=== PATIENT | male | born 1960 | race Caucasian/White ===

== ENCOUNTER 2018-01-21 06:02 | Day surgery (SDC) | payer BC ==
[~2018-01-21 06:02] MED LIST: Lactated Ringers 1,000 ML IV ONE
[2018-01-21] MEDS ORDERED: DIPRIVAN 200 MG/20 ML IV ONE (06:03)
[2018-01-21] MEDS ORDERED: Ketamine HCl 50 MG/ML IV ONE (06:03)
[2018-01-21] MEDS ORDERED: Lactated Ringers 1,000 ML IV SCH (07:00)
[2018-01-21 08:48] VITALS: O2SAT 99
--- NOTE | 2018-01-21 08:49 | OP ---
SURGERY DATE/TIME: 01/21/2018 0745 PREOPERATIVE DIAGNOSES: 1) Screening colonoscopy. 2) History of colon polyps. POSTOPERATIVE DIAGNOSIS: Normal colon. PROCEDURE: Colonoscopy. SURGEON: Tommy Simpson M.D. ANESTHESIA: MAC by Roberto Jason CRNA. ESTIMATED BLOOD LOSS: None. SPECIMENS: None. DESCRIPTION OF PROCEDURE: After informed written consent was obtained, the patient was taken to the endoscopy suite. He underwent monitored anesthesia and digital rectal exam showed normal sphincter tone and no internal lesions. The scope was inserted into the rectum and sequentially the entire colonic mucosa was traversed. The level of cecum was reached and verified with direct visualization of ileocecal valve. Upon withdrawal careful mucosal inspection revealed no gross abnormalities or lesions. Prior to withdrawal retroflexion was performed and showed no internal lesions. The scope was removed and the patient was transferred to the recovery room in good condition.
[2018-01-21 08:53] VITALS: BP 155/83; PULSE 84
== END 2018-01-21 09:00 | disposition home or self-care (01) ==
LOC: SDC 06:02
PROVIDERS: ATTEND Family Medicine
DX: Z12.11 Encounter for screening for malignant neoplasm of colon (principal); Z86.010 Personal history of colon polyps
CPT/HCPCS: 94250; J2704

== ENCOUNTER 2018-04-23 07:16 | Emergency (ER) | payer BC ==
--- NOTE | 2018-04-23 07:54 | ERPHSYRPT ---
- History of Present Illness Time Seen by Provider: 04/23/18 07:35 Source: patient, family Patient Subjective Stated Complaint: fell off ladder on Friday and went to see Dr. Chaney and she gave him the all clear but in bed last night he heard something "pop" in his back and now he is having pain Triage Nursing Assessment: Pt states that he fell off a ladder on Friday and went to see Dr. Chaney and she gave him the all clear but in bed last night he heard something "pop" in his back and now he is having pain, pain in medial upper back, denies numbness or tingling, denies pain with palpatation, rates pain 3/10 while walking, pulses normal, vitals wnl, doesn't appear to be in any distress Physician History: 57 y/o white male fell approx 6 ft off a ladder onto his back 3 days ago. seen by pcp friday and pt states his pcp stated all ok. last pm pt twisted and felt a pop and has had worsening pain. hurts to breathe. pt had about 20 norco left from recent foot surgery but did not take any. no new falls Timing/Duration: day(s) (3) Method of Injury: fall Quality: sharp, stabbing Back Pain Location: T-spine, lumbar spine Severity of Pain-Max: moderate Severity of Pain-Current: moderate Modifying Factors: Improves With: movement (worsens) Associated Symptoms: lower back pain, muscle spasms, No loss of bowel control, No constipation, No nausea, No vomiting, No problems urinating, No weakness, No sensory/motor loss, No tingling in legs/feet Previous symptoms: recently seen Allergies/Adverse Reactions: No Known Drug Allergies Allergy (Verified 04/23/18 07:29) Home Medications: Lisinopril 40 mg PO DAILY 04/23/18 [History] hydroCHLOROthiazide [Hydrochlorothiazide] 25 mg PO DAILY 04/23/18 [History] Hx Influenza Vaccination/Date Given: No Hx Pneumococcal Vaccination/Date Given: No - Review of Systems Constitutional: No Symptoms Eyes: No Symptoms Ears, Nose, & Throat: No Symptoms Respiratory: No Symptoms Cardiac: No Symptoms Abdominal/Gastrointestinal: No Symptoms Genitourinary Symptoms: No Symptoms Musculoskeletal: Back Pain, Fall Skin: No Symptoms Neurological: No Symptoms Psychological: No Symptoms Endocrine: No Symptoms Hematologic/Lymphatic: No Symptoms Immunological/Allergic: No Symptoms All Other Systems: Reviewed and Negative - Past Medical History Pertinent Past Medical History: Yes Neurological History: No Pertinent History ENT History: No Pertinent History Cardiac History: No Pertinent History Respiratory History: No Pertinent History Endocrine Medical History: No Pertinent History Musculoskeletal History: Fractures, Other GI Medical History: No Pertinent History History: No Pertinent History Psycho-Social History: No Pertinent History Male Reproductive Disorders: No Pertinent History Other Medical History: gout, fx hand ankle nose. - Past Surgical History Past Surgical History: No Neuro Surgical History: No Pertinent History Cardiac: No Pertinent History Respiratory: No Pertinent History Gastrointestinal: No Pertinent History Genitourinary: No Pertinent History Musculoskeletal: No Pertinent History Male Surgical History: No Pertinent History Other Surgical History: tumor taken off of right foot - Social History Smoking Status: Former smoker Exposure to second hand smoke: Yes Drug Use: none Patient Lives Alone: No - Nursing Vital Signs Nursing Vital Signs: Initial Vital Signs Temperature 98.2 F 04/23/18 07:21 Pulse Rate 74 04/23/18 07:21 Blood Pressure 132/84 04/23/18 07:21 O2 Sat by Pulse Oximetry 99 04/23/18 07:21 Pain Scale Pain Intensity [Upper Medial 3 Back] Pain Intensity 3 - Physical Exam General Appearance: mild distress, alert, anxiety Eye Exam: PERRL/EOMI Ears, Nose, Throat Exam: normal ENT inspection, moist mucous membranes Neck Exam: normal inspection, non-tender, supple, full range of motion Respiratory Exam: normal breath sounds, lungs clear, airway intact, No respiratory distress, No accessory muscle use, No rhonchi, No wheezing, No stridor Cardiovascular Exam: regular rate/rhythm, normal heart sounds, normal peripheral pulses Gastrointestinal Exam: soft, normal bowel sounds, No tenderness, No guarding, No rebound Rectal Exam: not done Back Exam: vertebral tenderness, decreased range of motion, muscle spasm, other (area of midthoracic swelling and tenderness) Extremity Exam: normal inspection, normal range of motion, pelvis stable Neurologic Exam: alert, oriented x 3, cooperative, 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 Skin Exam: normal color, warm, dry Lymphatic Exam: adenopathy SpO2 Interpretation: normal SpO2: 99 O2 Delivery: Room Air - Course Nursing assessment & vital signs reviewed: Yes Ordered Tests: Active Orders 24 hr Category Date Time Status LUMBAR LIMITED (2 OR 3 VIEWS) Stat Exams 04/23/18 08:08 Completed THORACIC SPINE (AP,LAT,SWIMM) Stat Exams 04/23/18 08:08 Completed Medication Summary Discontinued Medications Generic Name Dose Route Start Last Admin Trade Name Miranda PRN Reason Stop Dose Admin Hydromorphone HCl 1 mg 04/23/18 08:04 04/23/18 08:10 Hydromorphone 1 Mg/Ml Ampule IM 04/23/18 08:05 1 mg STAT ONE Administration Hydromorphone HCl Confirm 04/23/18 08:07 Hydromorphone 1 Mg/Ml Ampule Administered 04/23/18 08:08 Dose 1 mg .ROUTE .STK-MED ONE Promethazine HCl 12.5 mg 04/23/18 08:05 04/23/18 08:11 Phenergan 25 Mg Inj IM 04/23/18 08:06 12.5 mg STAT ONE Administration Promethazine HCl Confirm 04/23/18 08:07 Phenergan 25 Mg Inj Administered 04/23/18 08:08 Dose 25 mg .ROUTE .STK-MED ONE - Progress Progress: improved Progress Note: 04/23/18 09:16 xray thoracic and lumbar spine-no acute fx or subluxation Counseled pt/family regarding: diagnosis, need for follow-up, rad results - Departure Time of Disposition: 09:17 Departure Disposition: Home Clinical Impression: Back pain due to injury Condition: Stable Critical Care Time: No Referrals: ACOSTA CHANEY [Primary Care Provider] - Additional Instructions: take your norco as prescribed. follow up with primary doctor for further management. Prescriptions: Carisoprodol 350 mg [Soma 350 mg] 350 mg PO Q8H PRN PRN #10 tablet PRN Reason: Muscle Spasms Prednisone 10 mg [Deltasone 10 mg] 10 mg PO TID #12 tablet
[2018-04-23] MEDS ORDERED: Hydromorphone 1 mg/ml Ampule IM ONE (08:04)
[2018-04-23] MEDS ORDERED: Phenergan 25 MG INJ IM ONE (08:05)
[2018-04-23] MEDS ORDERED: Hydromorphone 1 mg/ml Ampule ONE (08:07)
[2018-04-23] MEDS ORDERED: Phenergan 25 MG INJ ONE (08:07)
--- NOTE | 2018-04-23 08:44 | XRAY ---
Indication: Pain following fall. Comparison: None Frontal/lateral thoracic spine demonstrates 12 typical rib-bearing thoracic vertebral segments in normal alignment with vertebral body heights and disc spaces maintained. Mild multilevel degenerative endplate spurring. No other bony, articular, or soft tissue abnormalities. Impression: Nonacute thoracic spine with chronic features.
--- NOTE | 2018-04-23 08:45 | XRAY ---
Indication: Pain following fall. Comparison: None 3 views of the lumbar spine demonstrates 4 lumbar segments with sacralized L5 in normal alignment with mild multilevel endplate spurring, minimal L4-L5 disc space narrowing, mild L4-L5 degenerative facet arthropathy, and minimal aortic calcifications. No other bony, articular, or soft tissue abnormalities. Impression: Nonacute lumbar spine with chronic features.
[2018-04-23 09:41] VITALS: BP 111/75; PULSE 65; O2SAT 94
== END 2018-04-23 09:43 | disposition home or self-care (01) ==
LOC: ED 07:16
DX: M54.6 Pain in thoracic spine (principal); X50.1XXA Overexertion from prolonged static or awkward postures, initial encounter; W11.XXXA Fall on and from ladder, initial encounter; M54.5 Low back pain; M62.830 Muscle spasm of back
CPT/HCPCS: 72072; 72100; 96372; 99284; J1170; J2550

== ENCOUNTER 2020-01-25 09:06 | Observation (INO) | payer BC ==
[2020-01-25] MEDS: Sodium Chloride 0.9% 1000 ML 1,000 ML IV SCH (09:35)
--- NOTE | 2020-01-25 09:37 | ERPHSYRPT ---
- History of Present Illness Time Seen by Provider: 01/25/20 09:15 Source: patient Physician History: Patient is a 59-year-old male presents to our ED with slurred speech and right- sided facial droop that has been ongoing for 4 days. Patient was sent to our ED for an evaluation per his 's request. Patient observed the symptoms on Friday. Patient did not think much of it. At that time he also experienced a mild headache. Symptoms persisted and family became concerned. Patient has hi story of untreated hypertension. Patient states he also has hypercholesterolemia. Patient chews tobacco. No history of CVA. No associated chest pain or shortness of breath. No nausea vomiting or diaphoresis. Symptoms are moderate in intensity. No specific worsening or improving factors. Patient states otherwise healthy. He voices no other complaints at this time. Timing/Duration: day(s) (4 days ago) Severity: moderate Modifying Factors: Improves With: nothing Associated Symptoms: other (Slurred speech) Allergies/Adverse Reactions: No Known Drug Allergies Allergy (Verified 01/25/20 09:35) Home Medications: No Reportable Medications [No Reported Medications] 01/25/20 [History] Hx Influenza Vaccination/Date Given: No Hx Pneumococcal Vaccination/Date Given: No - Review of Systems Constitutional: No Symptoms, No Fever, No Chills Eyes: No Symptoms Ears, Nose, & Throat: No Symptoms Respiratory: No Symptoms, No Cough, No Dyspnea Cardiac: No Symptoms, No Chest Pain, No Edema, No Syncope Abdominal/Gastrointestinal: No Symptoms, No Abdominal Pain, No Nausea, No Vomiting, No Diarrhea Genitourinary Symptoms: No Symptoms, No Dysuria Musculoskeletal: No Symptoms, No Back Pain, No Neck Pain Skin: No Symptoms, No Rash Neurological: No Symptoms, No Dizziness, No Focal Weakness, No Sensory Changes Psychological: No Symptoms Endocrine: No Symptoms Hematologic/Lymphatic: No Symptoms Immunological/Allergic: No Symptoms All Other Systems: Reviewed and Negative - Past Medical History Pertinent Past Medical History: Yes Neurological History: No Pertinent History ENT History: No Pertinent History Cardiac History: No Pertinent History Respiratory History: No Pertinent History Endocrine Medical History: No Pertinent History Musculoskeletal History: Fractures, Other GI Medical History: No Pertinent History History: No Pertinent History Psycho-Social History: No Pertinent History Male Reproductive Disorders: No Pertinent History Other Medical History: gout, fx hand ankle nose. - Past Surgical History Past Surgical History: No Neuro Surgical History: No Pertinent History Cardiac: No Pertinent History Respiratory: No Pertinent History Gastrointestinal: No Pertinent History Genitourinary: No Pertinent History Musculoskeletal: No Pertinent History Male Surgical History: No Pertinent History Other Surgical History: tumor taken off of right foot - Social History Smoking Status: Former smoker Exposure to second hand smoke: Yes Drug Use: none Patient Lives Alone: No - Nursing Vital Signs Nursing Vital Signs: Initial Vital Signs Temperature 97.8 F 01/25/20 09:08 Pulse Rate 63 01/25/20 09:08 Respiratory Rate 20 01/25/20 09:08 Blood Pressure 172/106 01/25/20 09:08 O2 Sat by Pulse Oximetry 100 01/25/20 09:08 Pain Scale Pain Intensity 0 - Physical Exam General Appearance: no apparent distress, alert Eye Exam: PERRL/EOMI, eyes nml inspection Ears, Nose, Throat Exam: normal ENT inspection, TMs normal, pharynx normal, moist mucous membranes Neck Exam: normal inspection, non-tender, supple, full range of motion Respiratory Exam: normal breath sounds, lungs clear, No respiratory distress Cardiovascular Exam: regular rate/rhythm, normal heart sounds, normal peripheral pulses Gastrointestinal/Abdomen Exam: soft, normal bowel sounds, No tenderness, No mass Back Exam: normal inspection, normal range of motion, No CVA tenderness, No vertebral tenderness Extremity Exam: normal inspection, normal range of motion, pelvis stable Neurologic Exam: alert, oriented x 3, cooperative, normal mood/affect, nml cerebellar function, nml station & gait, sensation nml, motor weakness, facial droop (Right-sided facial droop mild dysarthria), other (Patient states the right side of his face is more sensitive than the left.), No motor deficits, No disoriented, No confusion Skin Exam: normal color, warm, dry, No rash Lymphatic Exam: No adenopathy SpO2 Interpretation: normal SpO2: 98 O2 Delivery: Room Air - Course Nursing assessment & vital signs reviewed: Yes EKG Interpreted by Me: RATE (61), Sinus Rhythm, NORMAL AXIS, NORMAL INTERVALS - Radiology Exams Chest X-ray Interpretation: Teleradiologist Report (No acute pathology observed.) - CT Exams Head CT Interpretation: Tele-radiologist Report (No acute intracranial process.) Ordered Tests: Active Orders 24 hr Category Date Time Status Consulting Project Director STAT Care 01/25/20 09:31 Active EKG-ER Only STAT Care 01/25/20 09:30 Active IV Insertion STAT Care 01/25/20 09:30 Active NPO (ED) STAT Care 01/25/20 09:30 Active POCT Glucose Check STAT Care 01/25/20 09:30 Active Pulse Oximetry (ED) STAT Care 01/25/20 09:30 Active CHEST 1 VIEW (PORTABLE) Stat Exams 01/25/20 09:30 Completed HEAD WITHOUT CONTRAST [CT] Stat Exams 01/25/20 09:30 Completed CBC W DIFF Stat Lab 01/25/20 09:15 Completed CMP Stat Lab 01/25/20 09:15 Completed TROPONIN Q3H Lab 01/25/20 10:15 Ordered TROPONIN Q3H Lab 01/25/20 13:15 Ordered TROPONIN Q3H Lab 01/25/20 16:15 Ordered TROPONIN Q3H Lab 01/25/20 19:15 Ordered TROPONIN Q3H Lab 01/25/20 22:15 Ordered UA W/RFX UR CULTURE Stat Lab 01/25/20 10:20 Ordered Transfer Order Routine Transfer 01/25/20 Ordered Medication Summary Generic Name Dose Route Start Last Admin Trade Name Freq PRN Reason Stop Dose Admin Sodium Chloride 1,000 mls @ 50 mls/hr 01/25/20 09:30 01/25/20 09:35 Sodium Chloride 0.9% 1000 Ml IV 02/24/20 09:29 50 mls/hr .Q20H HAN Administration Discontinued Medications Generic Name Dose Route Start Last Admin Trade Name Freq PRN Reason Stop Dose Admin Aspirin 324 mg 01/25/20 10:10 01/25/20 10:12 Baby Aspirin 81 Mg Chew PO 01/25/20 10:11 324 mg STAT ONE Administration Aspirin Confirm 01/25/20 10:12 Baby Aspirin 81 Mg Chew Administered 01/25/20 10:13 Dose 324 mg .ROUTE .STK-MED ONE Lab/Rad Data: Laboratory Result Diagrams 01/25/20 09:15 01/25/20 09:15 Laboratory Results 01/25/20 01/25/20 Range/Units 09:15 09:15 WBC 5.7 (4.0-10.5) K/mm3 RBC 5.21 (4.1-5.6) M/mm3 Hgb 16.2 (12.5-18.0) gm/dl Hct 49.7 (42-50) % MCV 95.4 (78-100) fl MCH 31.1 (26-32) pg MCHC 32.6 (32-36) g/dl RDW 13.6 (11.5-14.0) % Plt Count 191 (150-450) K/mm3 MPV 11.1 H (7.5-11.0) fl Gran % 54.4 (36.0-66.0) % Eos # (Auto) 0.09 (0-0.5) Absolute Lymphs (auto) 1.62 (1.0-4.6) Absolute Monos (auto) 0.87 (0.0-1.3) Lymphocytes % 28.3 (24.0-44.0) % Monocytes % 15.2 H (0.0-12.0) % Eosinophils % 1.6 (0.00-5.0) % Basophils % 0.5 (0.0-0.4) % Absolute Granulocytes 3.11 (1.4-6.9) Basophils # 0.03 (0-0.4) Sodium 141 (137-145) mmol/L Potassium 4.1 (3.5-5.1) mmol/L Chloride 103 (98-107) mmol/L Carbon Dioxide 31 H (22-30) mmol/L Anion Gap 11.1 (5-15) MEQ/L BUN 18 (9-20) mg/dL Creatinine 1.09 (0.66-1.25) mg/dL Estimated GFR > 60.0 ML/MIN Glucose 87 (74-106) mg/dL Calcium 9.3 (8.4-10.2) mg/dL Total Bilirubin 0.50 (0.2-1.3) mg/dL AST 27 (17-59) U/L ALT 24 (0-50) U/L Alkaline Phosphatase 81 (38-126) U/L Serum Total Protein 7.4 (6.3-8.2) g/dL Albumin 4.6 (3.5-5.0) g/dL - Progress Progress: improved Progress Note: 01/25/20 10:22 Patient reassessed. Repeat neuro exam unchanged. CT head negative for acute intracranial pathology. Aspirin administered. IV fluids normal saline running at 75 cc/h. It appears that patient did have a stroke based on history of pres ent illness, risk factors and physical exam findings. Patient will need full work-up at the admitting physician's discretion. Plan of care discussed with patient. He agrees to admission to [facility] for further evaluation and treatment. Patient voices no other complaints or concerns at this time. Case discussed with Dr. Espino covering Dr. Geronimo. Dr. Espino accepts admission to observation. Patient is not a candidate for TPA due to patient being outside of therapeutic window for TPA. Patient symptoms occurred 4 days ago. 01/25/20 10:24 01/25/20 10:25 Discussed with : Julius Will see patient in: hospital (observation) Counseled pt/family regarding: lab results, diagnosis, rad results - Departure Departure Disposition: Observation Clinical Impression: Stroke, Dysarthria, Facial droop Condition: Stable Critical Care Time: No Referrals: GILBERTO GERONIMO MD [Primary Care Provider] -
[2020-01-25 09:53] LABS: Absolute Neutrophil Ct (ANC) 3.11 (1.4-6.9); BASOPHIL % 0.5 % (0.0-0.4); Basophil (Absolute #) 0.03 (0-0.4); Eosinophil % 1.6 % (0.00-5.0); Eosinophil (Absolute #) 0.09 (0-0.5); Hematocrit 49.7 % (42-50); Hemoglobin 16.2 gm/dl (12.5-18.0); Lymphocyte (Absolute #) 1.62 (1.0-4.6); Lymphocytes % 28.3 % (24.0-44.0); Mean Cell Volume 95.4 fl (78-100); Mean Corpuscular Hemoglobin 31.1 pg (26-32); Mean Corpuscular Hgb Concent. 32.6 g/dl (32-36); Mean Platelet Volume 11.1 fl (7.5-11.0); Monocyte (Absolute #) 0.87 (0.0-1.3); Monocytes % 15.2 % (0.0-12.0); Neutrophil % 54.4 % (36.0-66.0); Platelet Count 191 K/mm3 (150-450); Red Blood Count 5.21 M/mm3 (4.1-5.6); Red Cell Distribution Width 13.6 % (11.5-14.0); White Blood Count 5.7 K/mm3 (4.0-10.5)
--- NOTE | 2020-01-25 09:56 | XRAY ---
Indication: Confusion, slurred speech, and stroke like symptoms. Multiple contiguous axial images obtained through the head without contrast. Comparison: None Age-appropriate global atrophy and minimal periventricular degenerative micro-ischemia bilaterally. No acute intracranial hemorrhage, abnormal extra-axial fluid collection, or mass effect. Fourth ventricle is midline without hydrocephalus. Farias-white matter differentiation preserved. Bony calvarium intact. Visualized paranasal sinuses and mastoid air cells are clear. Impression: Normal aging brain including atrophy and degenerative micro-ischemia. No acute intracranial abnormalities.
[2020-01-25 10:00] LABS: ALBUMIN 4.6 g/dL (3.5-5.0); ALKALINE PHOSPHATASE 81 U/L (38-126); ANION GAP 11.1 MEQ/L (5-15); BLOOD UREA NITROGEN 18 mg/dL (9-20); CHLORIDE 103 mmol/L (98-107); Calcium 9.3 mg/dL (8.4-10.2); Carbon Dioxide 31 mmol/L (22-30); Creatinine 1 1.09 mg/dL (0.66-1.25); EST GLOMERULAR FILTRATION RATE > 60.0 ML/MIN; Glucose 87 mg/dL (74-106); Potassium 4.1 mmol/L (3.5-5.1); SGOT/AST 27 U/L (17-59); SGPT/ALT 24 U/L (0-50); SODIUM 141 mmol/L (137-145); Total Protein 7.4 g/dL (6.3-8.2)
--- NOTE | 2020-01-25 10:00 | XRAY ---
Indication: Confusion, slurred speech, and stroke like symptoms. Comparison: None Portable chest demonstrates normal heart and lungs. Bony thorax intact with old left 5-7 rib fractures.
[2020-01-25] MEDS ORDERED: BABY ASPIRIN 81 MG CHEW PO ONE (10:10)
[2020-01-25] MEDS ORDERED: BABY ASPIRIN 81 MG CHEW ONE (10:12)
[2020-01-25 10:42] LABS: Appearance CLEAR (CLEAR); Bilirubin NEGATIVE (NEGATIVE); Blood NEGATIVE Ery/ul (0-5); Glucose NEGATIVE (NEGATIVE); Hyaline Casts 0-2 /LPF (0-2); Ketones NEGATIVE (NEGATIVE); Leukocyte Esterase NEGATIVE (NEGATIVE); Mucus SLIGHT /HPF (NEGATIVE); Nitrite NEGATIVE (NEGATIVE); Protein,Urine Dip NEGATIVE (Negative); Specific Gravity 1.016 (1.005-1.025); Urobilinogen NEGATIVE mg/dL (0-1)
[2020-01-25] MEDS ORDERED: Senokot-S Tablet PO PRN (11:04)
[2020-01-25] MEDS ORDERED: MAALOX ES 30 ML UNIT DOSE PO PRN (11:04)
[2020-01-25] MEDS ORDERED: TYLENOL 325 MG PO PRN (11:04)
[2020-01-25] MEDS ORDERED: MILK OF MAGNESIA 30 ML PO PRN (11:04)
[2020-01-25] MEDS ORDERED: Zofran 4 MG/2 ML VIAL IV PRN (11:04)
[2020-01-25] MEDS ORDERED: Sodium Chloride 0.9% 500 ML 500 ML IV SCH (11:04)
[2020-01-26] MEDS: Sodium Chloride 0.9% 1000 ML 1,000 ML IV SCH (00:46)
--- NOTE | 2020-01-26 08:34 | PCM.SSS ---
History of Present Illness - Chief Complaint Chief Complaint: stroke History of Present Illness: is a 59 year old male who presented to the ER yesterday, 3-4 days prior to arrival he had developed slurred speech and drooping of his face on the left, there were no associated deficits in the upper or lower extremity, he relays some cold symptoms prior to onset but never felt poorly. no affect on his ability to eat or drink, no problems with vision, no headache. he was admitted for possible stroke, ct was negative. - Review of Systems Constitutional: No Fever, No Chills Respiratory: No Cough, No Short Of Breath Cardiac: No Chest Pain, No Edema, No Syncope Abdominal/Gastrointestinal: No Abdominal Pain, No Nausea, No Vomiting, No Diarrhea Neurological: Focal Weakness, Speech Changes, No Dizziness, No Gait Changes, No Headache, No Seizure, No Tremors, No Vertigo Psychological: No Symptoms All Other Systems: Reviewed and Negative Medications & Allergies Home Medications: Home Medication List Acyclovir 800 mg [Zovirax 800 mg] 800 mg PO 5XD #35 tablet 01/26/20 [Rx] Prednisone 20 mg [Deltasone 20 mg] 20 mg PO UD #18 tablet 01/26/20 [Rx] Allergies/Adverse Reactions: Allergies Allergy/AdvReac Type Severity Reaction Status Date / Time No Known Drug Allergies Allergy Verified 01/25/20 09:35 - Past Medical History Past Medical History: Yes Neurological History: No Pertinent History ENT History: No Pertinent History Cardiac History: No Pertinent History Respiratory History: No Pertinent History Endocrine Medical History: No Pertinent History Musculoskelatal History: Fractures, Other GI Medical History: No Pertinent History History: No Pertinent History Pyscho-Social History: No Pertinent History Male Reproductive Disorders: No Pertinent History Comment: gout, fx hand ankle nose. - Past Surgical History Past Surgical History: No Neuro Surgical History: No Pertinent History Cardiac History: No Pertinent History Respiratory Surgery: No Pertinent History GI Surgical History: No Pertinent History Genitourinary Surgical Hx: No Pertinent History Musculskeletal Surgical Hx: No Pertinent History Male Surgical History: No Pertinent History Other Surgical History: tumor taken off of right foot - Social History Smoking Status: Former smoker Exposure to second hand smoke: Yes Alcohol: None Drug Use: none - Physical Exam Vital Signs: Vital Signs - 24 hr Temp Pulse Resp BP Pulse Ox 01/26/20 08:03 98.4 F 63 16 136/94 97 01/26/20 07:07 95 01/26/20 04:19 98.2 F 75 16 155/85 95 01/25/20 23:42 98.0 F 74 15 126/70 97 01/25/20 20:01 98.3 F 66 16 145/87 95 01/25/20 19:17 93 L 01/25/20 16:00 80 20 161/87 95 01/25/20 15:17 98 01/25/20 11:42 98.5 F 82 148/91 98 01/25/20 10:26 98 01/25/20 10:17 65 18 140/97 98 01/25/20 09:36 100 01/25/20 09:08 97.8 F 63 20 172/106 100 General Appearance: no apparent distress Neurologic Exam: alert, oriented x 3, cooperative, nml cerebellar function, nml station & gait, sensation nml, facial droop (left, no involvement of ocular muscles, able to close both eyes and no weakness in closing eyes or raising eyebrows), slurred speech, No motor deficits, No sensory deficit, No disoriented Respiratory Exam: normal breath sounds, lungs clear, No respiratory distress Cardiovascular Exam: regular rate/rhythm, normal heart sounds, normal peripheral pulses Gastrointestinal/Abdomen Exam: soft, normal bowel sounds, No tenderness, No mass Extremity Exam: normal inspection, normal range of motion, pelvis stable Skin Exam: normal color, warm, dry, No rash Results - Labs Lab/Micro Results: Lab Results-Last 24 Hours 01/25/20 01/25/20 01/25/20 Range/Units 09:15 09:15 10:16 WBC 5.7 (4.0-10.5) K/mm3 RBC 5.21 (4.1-5.6) M/mm3 Hgb 16.2 (12.5-18.0) gm/dl Hct 49.7 (42-50) % MCV 95.4 (78-100) fl MCH 31.1 (26-32) pg MCHC 32.6 (32-36) g/dl RDW 13.6 (11.5-14.0) % Plt Count 191 (150-450) K/mm3 MPV 11.1 H (7.5-11.0) fl Gran % 54.4 (36.0-66.0) % Eos # (Auto) 0.09 (0-0.5) Absolute Lymphs (auto) 1.62 (1.0-4.6) Absolute Monos (auto) 0.87 (0.0-1.3) Lymphocytes % 28.3 (24.0-44.0) % Monocytes % 15.2 H (0.0-12.0) % Eosinophils % 1.6 (0.00-5.0) % Basophils % 0.5 (0.0-0.4) % Absolute Granulocytes 3.11 (1.4-6.9) Basophils # 0.03 (0-0.4) Sodium 141 (137-145) mmol/L Potassium 4.1 (3.5-5.1) mmol/L Chloride 103 (98-107) mmol/L Carbon Dioxide 31 H (22-30) mmol/L Anion Gap 11.1 (5-15) MEQ/L BUN 18 (9-20) mg/dL Creatinine 1.09 (0.66-1.25) mg/dL Estimated GFR > 60.0 ML/MIN Glucose 87 (74-106) mg/dL Calcium 9.3 (8.4-10.2) mg/dL Total Bilirubin 0.50 (0.2-1.3) mg/dL AST 27 (17-59) U/L ALT 24 (0-50) U/L Alkaline Phosphatase 81 (38-126) U/L Troponin I < 0.012 (0.000-0.034) ng/mL Serum Total Protein 7.4 (6.3-8.2) g/dL Albumin 4.6 (3.5-5.0) g/dL Triglycerides (30-150) mg/dL Cholesterol (50-200) mg/dL LDL Cholesterol (30-100) mg/dL HDL Cholesterol (40-60) mg/dL Heart Disease Risk Ratio Urine Color (YELLOW) Urine Appearance (CLEAR) Urine pH (5-6) Ur Specific Hawley (1.005-1.025) Urine Protein (Negative) Urine Ketones (NEGATIVE) Urine Blood (0-5) Huber/ul Urine Nitrite (NEGATIVE) Urine Bilirubin (NEGATIVE) Urine Urobilinogen (0-1) mg/dL Ur Leukocyte Esterase (NEGATIVE) Urine WBC (Auto) (0-5) /HPF Urine RBC (Auto) (0-2) /HPF U Hyaline Cast (Auto) (0-2) /LPF U Epithel Cells (Auto) (FEW) /HPF Urine Bacteria (Auto) (NEGATIVE) /HPF Urine Mucus (Auto) (NEGATIVE) /HPF Urine Culture Reflexed (NO) Urine Glucose (NEGATIVE) mg/dL 01/25/20 01/25/20 01/25/20 Range/Units 10:20 13:25 16:10 WBC (4.0-10.5) K/mm3 RBC (4.1-5.6) M/mm3 Hgb (12.5-18.0) gm/dl Hct (42-50) % MCV (78-100) fl MCH (26-32) pg MCHC (32-36) g/dl RDW (11.5-14.0) % Plt Count (150-450) K/mm3 MPV (7.5-11.0) fl Gran % (36.0-66.0) % Eos # (Auto) (0-0.5) Absolute Lymphs (auto) (1.0-4.6) Absolute Monos (auto) (0.0-1.3) Lymphocytes % (24.0-44.0) % Monocytes % (0.0-12.0) % Eosinophils % (0.00-5.0) % Basophils % (0.0-0.4) % Absolute Granulocytes (1.4-6.9) Basophils # (0-0.4) Sodium (137-145) mmol/L Potassium (3.5-5.1) mmol/L Chloride (98-107) mmol/L Carbon Dioxide (22-30) mmol/L Anion Gap (5-15) MEQ/L BUN (9-20) mg/dL Creatinine (0.66-1.25) mg/dL Estimated GFR ML/MIN Glucose (74-106) mg/dL Calcium (8.4-10.2) mg/dL Total Bilirubin (0.2-1.3) mg/dL AST (17-59) U/L ALT (0-50) U/L Alkaline Phosphatase (38-126) U/L Troponin I < 0.012 < 0.012 (0.000-0.034) ng/mL Serum Total Protein (6.3-8.2) g/dL Albumin (3.5-5.0) g/dL Triglycerides (30-150) mg/dL Cholesterol (50-200) mg/dL LDL Cholesterol (30-100) mg/dL HDL Cholesterol (40-60) mg/dL Heart Disease Risk Ratio Urine Color YELLOW (YELLOW) Urine Appearance CLEAR (CLEAR) Urine pH 6.0 (5-6) Ur Specific Hawley 1.016 (1.005-1.025) Urine Protein NEGATIVE (Negative) Urine Ketones NEGATIVE (NEGATIVE) Urine Blood NEGATIVE (0-5) Huber/ul Urine Nitrite NEGATIVE (NEGATIVE) Urine Bilirubin NEGATIVE (NEGATIVE) Urine Urobilinogen NEGATIVE (0-1) mg/dL Ur Leukocyte Esterase NEGATIVE (NEGATIVE) Urine WBC (Auto) NONE (0-5) /HPF Urine RBC (Auto) NONE (0-2) /HPF U Hyaline Cast (Auto) 0-2 (0-2) /LPF U Epithel Cells (Auto) NONE (FEW) /HPF Urine Bacteria (Auto) NONE (NEGATIVE) /HPF Urine Mucus (Auto) SLIGHT (NEGATIVE) /HPF Urine Culture Reflexed NO (NO) Urine Glucose NEGATIVE (NEGATIVE) mg/dL 01/25/20 01/25/20 01/26/20 Range/Units 19:05 22:00 04:46 WBC (4.0-10.5) K/mm3 RBC (4.1-5.6) M/mm3 Hgb (12.5-18.0) gm/dl Hct (42-50) % MCV (78-100) fl MCH (26-32) pg MCHC (32-36) g/dl RDW (11.5-14.0) % Plt Count (150-450) K/mm3 MPV (7.5-11.0) fl Gran % (36.0-66.0) % Eos # (Auto) (0-0.5) Absolute Lymphs (auto) (1.0-4.6) Absolute Monos (auto) (0.0-1.3) Lymphocytes % (24.0-44.0) % Monocytes % (0.0-12.0) % Eosinophils % (0.00-5.0) % Basophils % (0.0-0.4) % Absolute Granulocytes (1.4-6.9) Basophils # (0-0.4) Sodium (137-145) mmol/L Potassium (3.5-5.1) mmol/L Chloride (98-107) mmol/L Carbon Dioxide (22-30) mmol/L Anion Gap (5-15) MEQ/L BUN (9-20) mg/dL Creatinine (0.66-1.25) mg/dL Estimated GFR ML/MIN Glucose (74-106) mg/dL Calcium (8.4-10.2) mg/dL Total Bilirubin (0.2-1.3) mg/dL AST (17-59) U/L ALT (0-50) U/L Alkaline Phosphatase (38-126) U/L Troponin I < 0.012 < 0.012 (0.000-0.034) ng/mL Serum Total Protein (6.3-8.2) g/dL Albumin (3.5-5.0) g/dL Triglycerides 120 (30-150) mg/dL Cholesterol 215 H (50-200) mg/dL LDL Cholesterol 133 H (30-100) mg/dL HDL Cholesterol 43 (40-60) mg/dL Heart Disease Risk Ratio 5.0 Urine Color (YELLOW) Urine Appearance (CLEAR) Urine pH (5-6) Ur Specific Hawley (1.005-1.025) Urine Protein (Negative) Urine Ketones (NEGATIVE) Urine Blood (0-5) Huber/ul Urine Nitrite (NEGATIVE) Urine Bilirubin (NEGATIVE) Urine Urobilinogen (0-1) mg/dL Ur Leukocyte Esterase (NEGATIVE) Urine WBC (Auto) (0-5) /HPF Urine RBC (Auto) (0-2) /HPF U Hyaline Cast (Auto) (0-2) /LPF U Epithel Cells (Auto) (FEW) /HPF Urine Bacteria (Auto) (NEGATIVE) /HPF Urine Mucus (Auto) (NEGATIVE) /HPF Urine Culture Reflexed (NO) Urine Glucose (NEGATIVE) mg/dL Accuchecks Date 01/25/20 Time 09:44 - Radiology Impressions Radiology Exams & Impressions: Radiology Procedures Category Date Time Status CHEST 1 VIEW (PORTABLE) Stat Exams 01/25/20 09:30 Completed HEAD WITHOUT CONTRAST [CT] Stat Exams 01/25/20 09:30 Completed MRI BRAIN W/O CONTRAST [MRI] Routine Exams 01/26/20 08:23 Ordered - Other Procedures and Tests Respiratory Therapy 01/27/20 05:00 EKG ONCE 01/28/20 05:00 EKG ONCE Assessment/Plan (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 recommend steroid and acyclovir course, no need for patching due to sparing of eye. Code(s): G51.0 - YAO'S PALSY (2) Facial droop Current Visit: Yes Status: Acute Code(s): R29.810 - FACIAL WEAKNESS Hospital Summary - Vitals & Intake/Output Vital Signs: Vital Signs Temperature 98.4 F 01/26/20 08:03 Pulse Rate 63 01/26/20 08:03 Respiratory Rate 16 01/26/20 08:03 Blood Pressure 136/94 01/26/20 08:03 O2 Sat by Pulse Oximetry 97 01/26/20 08:03 Intake & Output: Intake & Output 01/23/20 01/24/20 01/25/20 01/26/20 11:59 11:59 11:59 11:59 Intake Total 2416 Balance 2416 Weight 98.8 kg 98.7 kg - Lab Result Diagrams: 01/25/20 09:15 01/25/20 09:15 Lab Results-Last 24 Hrs: Lab Results-Last 24 Hours 01/25/20 01/25/20 01/25/20 Range/Units 09:15 09:15 10:16 WBC 5.7 (4.0-10.5) K/mm3 RBC 5.21 (4.1-5.6) M/mm3 Hgb 16.2 (12.5-18.0) gm/dl Hct 49.7 (42-50) % MCV 95.4 (78-100) fl MCH 31.1 (26-32) pg MCHC 32.6 (32-36) g/dl RDW 13.6 (11.5-14.0) % Plt Count 191 (150-450) K/mm3 MPV 11.1 H (7.5-11.0) fl Gran % 54.4 (36.0-66.0) % Eos # (Auto) 0.09 (0-0.5) Absolute Lymphs (auto) 1.62 (1.0-4.6) Absolute Monos (auto) 0.87 (0.0-1.3) Lymphocytes % 28.3 (24.0-44.0) % Monocytes % 15.2 H (0.0-12.0) % Eosinophils % 1.6 (0.00-5.0) % Basophils % 0.5 (0.0-0.4) % Absolute Granulocytes 3.11 (1.4-6.9) Basophils # 0.03 (0-0.4) Sodium 141 (137-145) mmol/L Potassium 4.1 (3.5-5.1) mmol/L Chloride 103 (98-107) mmol/L Carbon Dioxide 31 H (22-30) mmol/L Anion Gap 11.1 (5-15) MEQ/L BUN 18 (9-20) mg/dL Creatinine 1.09 (0.66-1.25) mg/dL Estimated GFR > 60.0 ML/MIN Glucose 87 (74-106) mg/dL Calcium 9.3 (8.4-10.2) mg/dL Total Bilirubin 0.50 (0.2-1.3) mg/dL AST 27 (17-59) U/L ALT 24 (0-50) U/L Alkaline Phosphatase 81 (38-126) U/L Troponin I < 0.012 (0.000-0.034) ng/mL Serum Total Protein 7.4 (6.3-8.2) g/dL Albumin 4.6 (3.5-5.0) g/dL Triglycerides (30-150) mg/dL Cholesterol (50-200) mg/dL LDL Cholesterol (30-100) mg/dL HDL Cholesterol (40-60) mg/dL Heart Disease Risk Ratio Urine Color (YELLOW) Urine Appearance (CLEAR) Urine pH (5-6) Ur Specific Hawley (1.005-1.025) Urine Protein (Negative) Urine Ketones (NEGATIVE) Urine Blood (0-5) Huber/ul Urine Nitrite (NEGATIVE) Urine Bilirubin (NEGATIVE) Urine Urobilinogen (0-1) mg/dL Ur Leukocyte Esterase (NEGATIVE) Urine WBC (Auto) (0-5) /HPF Urine RBC (Auto) (0-2) /HPF U Hyaline Cast (Auto) (0-2) /LPF U Epithel Cells (Auto) (FEW) /HPF Urine Bacteria (Auto) (NEGATIVE) /HPF Urine Mucus (Auto) (NEGATIVE) /HPF Urine Culture Reflexed (NO) Urine Glucose (NEGATIVE) mg/dL 01/25/20 01/25/20 01/25/20 Range/Units 10:20 13:25 16:10 WBC (4.0-10.5) K/mm3 RBC (4.1-5.6) M/mm3 Hgb (12.5-18.0) gm/dl Hct (42-50) % MCV (78-100) fl MCH (26-32) pg MCHC (32-36) g/dl RDW (11.5-14.0) % Plt Count (150-450) K/mm3 MPV (7.5-11.0) fl Gran % (36.0-66.0) % Eos # (Auto) (0-0.5) Absolute Lymphs (auto) (1.0-4.6) Absolute Monos (auto) (0.0-1.3) Lymphocytes % (24.0-44.0) % Monocytes % (0.0-12.0) % Eosinophils % (0.00-5.0) % Basophils % (0.0-0.4) % Absolute Granulocytes (1.4-6.9) Basophils # (0-0.4) Sodium (137-145) mmol/L Potassium (3.5-5.1) mmol/L Chloride (98-107) mmol/L Carbon Dioxide (22-30) mmol/L Anion Gap (5-15) MEQ/L BUN (9-20) mg/dL Creatinine (0.66-1.25) mg/dL Estimated GFR ML/MIN Glucose (74-106) mg/dL Calcium (8.4-10.2) mg/dL Total Bilirubin (0.2-1.3) mg/dL AST (17-59) U/L ALT (0-50) U/L Alkaline Phosphatase (38-126) U/L Troponin I < 0.012 < 0.012 (0.000-0.034) ng/mL Serum Total Protein (6.3-8.2) g/dL Albumin (3.5-5.0) g/dL Triglycerides (30-150) mg/dL Cholesterol (50-200) mg/dL LDL Cholesterol (30-100) mg/dL HDL Cholesterol (40-60) mg/dL Heart Disease Risk Ratio Urine Color YELLOW (YELLOW) Urine Appearance CLEAR (CLEAR) Urine pH 6.0 (5-6) Ur Specific Hawley 1.016 (1.005-1.025) Urine Protein NEGATIVE (Negative) Urine Ketones NEGATIVE (NEGATIVE) Urine Blood NEGATIVE (0-5) Huber/ul Urine Nitrite NEGATIVE (NEGATIVE) Urine Bilirubin NEGATIVE (NEGATIVE) Urine Urobilinogen NEGATIVE (0-1) mg/dL Ur Leukocyte Esterase NEGATIVE (NEGATIVE) Urine WBC (Auto) NONE (0-5) /HPF Urine RBC (Auto) NONE (0-2) /HPF U Hyaline Cast (Auto) 0-2 (0-2) /LPF U Epithel Cells (Auto) NONE (FEW) /HPF Urine Bacteria (Auto) NONE (NEGATIVE) /HPF Urine Mucus (Auto) SLIGHT (NEGATIVE) /HPF Urine Culture Reflexed NO (NO) Urine Glucose NEGATIVE (NEGATIVE) mg/dL 01/25/20 01/25/20 01/26/20 Range/Units 19:05 22:00 04:46 WBC (4.0-10.5) K/mm3 RBC (4.1-5.6) M/mm3 Hgb (12.5-18.0) gm/dl Hct (42-50) % MCV (78-100) fl MCH (26-32) pg MCHC (32-36) g/dl RDW (11.5-14.0) % Plt Count (150-450) K/mm3 MPV (7.5-11.0) fl Gran % (36.0-66.0) % Eos # (Auto) (0-0.5) Absolute Lymphs (auto) (1.0-4.6) Absolute Monos (auto) (0.0-1.3) Lymphocytes % (24.0-44.0) % Monocytes % (0.0-12.0) % Eosinophils % (0.00-5.0) % Basophils % (0.0-0.4) % Absolute Granulocytes (1.4-6.9) Basophils # (0-0.4) Sodium (137-145) mmol/L Potassium (3.5-5.1) mmol/L Chloride (98-107) mmol/L Carbon Dioxide (22-30) mmol/L Anion Gap (5-15) MEQ/L BUN (9-20) mg/dL Creatinine (0.66-1.25) mg/dL Estimated GFR ML/MIN Glucose (74-106) mg/dL Calcium (8.4-10.2) mg/dL Total Bilirubin (0.2-1.3) mg/dL AST (17-59) U/L ALT (0-50) U/L Alkaline Phosphatase (38-126) U/L Troponin I < 0.012 < 0.012 (0.000-0.034) ng/mL Serum Total Protein (6.3-8.2) g/dL Albumin (3.5-5.0) g/dL Triglycerides 120 (30-150) mg/dL Cholesterol 215 H (50-200) mg/dL LDL Cholesterol 133 H (30-100) mg/dL HDL Cholesterol 43 (40-60) mg/dL Heart Disease Risk Ratio 5.0 Urine Color (YELLOW) Urine Appearance (CLEAR) Urine pH (5-6) Ur Specific Hawley (1.005-1.025) Urine Protein (Negative) Urine Ketones (NEGATIVE) Urine Blood (0-5) Huber/ul Urine Nitrite (NEGATIVE) Urine Bilirubin (NEGATIVE) Urine Urobilinogen (0-1) mg/dL Ur Leukocyte Esterase (NEGATIVE) Urine WBC (Auto) (0-5) /HPF Urine RBC (Auto) (0-2) /HPF U Hyaline Cast (Auto) (0-2) /LPF U Epithel Cells (Auto) (FEW) /HPF Urine Bacteria (Auto) (NEGATIVE) /HPF Urine Mucus (Auto) (NEGATIVE) /HPF Urine Culture Reflexed (NO) Urine Glucose (NEGATIVE) mg/dL Micro Results-Entire Visit: Accuchecks Date 01/25/20 Time 09:44 - Radiology Exams Ordered Rad Exams-Entire Visit: Radiology Procedures Category Date Time Status CHEST 1 VIEW (PORTABLE) Stat Exams 01/25/20 09:30 Completed HEAD WITHOUT CONTRAST [CT] Stat Exams 01/25/20 09:30 Completed MRI BRAIN W/O CONTRAST [MRI] Routine Exams 11/25/20 08:23 Ordered - Procedures and Test Procedures and Tests throughout Hospitalization: Therapy Orders & Screens 01/25/20 11:55 OT Screen per Nursing Assess ONCE Comment: Protocol Order Physician Instructions: Greater than 3 points order OT Admission Screening Reason For Exam: Triggered on Admission Diagnosis: stroke Open Wound/Cellutlitis/Pressure Ulcers: No Acute Fx/ORIF/Change in wt bearing status: No Severe MUSCULOSKELETAL pain: No ADL Dysfunction: No Acute CVA w/Hemiparesis/Hemiplegia: Yes Decreased Functional Mobility/Strength: No Sprain/Strain: No Acute Post-op Mobility Dysfunction: No Total Points: 5 PT Screen per Nursing Assess ONCE Comment: Protocol Order Physician Instructions: Greater than 3 points order PT Admission Screenin Reason For Exam: Triggered on Admission Diagnosis: stroke Open Wound/Cellutlitis/Pressure Ulcers: No Acute Fx/ORIF/Change in wt bearing status: No Severe MUSCULOSKELETAL pain: No ADL Dysfunction: No Acute CVA w/Hemiparesis/Hemiplegia: Yes Decreased Functional Mobility/Strength: No Sprain/Strain: No Acute Post-op Mobility Dysfunction: No Total Points: 5 01/25/20 14:02 Speech Therapy Eval & Treat [ST Eval & Treat (MD Order)] .as ordered Comment: Physician Instructions: Reason For Exam: Evaluate: cva Treat: speech deficit Reason for Eval: cva Diagnosis: stroke 01/25/20 17:30 EKG [id number],QAMX3,PRN Comment: 01/26/20 05:00 EKG ONCE Comment: Diagnosis: stroke 01/27/20 05:00 EKG ONCE Comment: Diagnosis: stroke 01/28/20 05:00 EKG ONCE Comment: Diagnosis: stroke - Discharge Disposition: Home, Self-Care Condition: Stable Prescriptions: New Prednisone 20 mg [Deltasone 20 mg] 20 mg PO UD #18 tablet Acyclovir 800 mg [Zovirax 800 mg] 800 mg PO 5XD #35 tablet Follow up with: GILBERTO GERONIMO MD [Primary Care Provider] -
[2020-01-26] MEDS ORDERED: Ecotrin 325 MG PO SCH (10:00)
[2020-01-26 16:08] VITALS: BP 174/95; PULSE 87; O2SAT 98
--- NOTE | 2020-01-26 16:37 | XRAY ---
Indication: Facial droop. Slurred speech. 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 Sagittal, coronal, and axial MRI brain was performed without contrast using T1, T2, FLAIR, diffusion, and ADC sequences. Comparison: None Age-appropriate global atrophy and mild/moderate periventricular degenerative micro-ischemia signal bilaterally. Left mid centrum semiovale demonstrates 5 x 12 mm focus of restricted signal favoring acute micro-ischemia. Right frontal lobe demonstrates 9 mm focus of old infarct with surrounding gliosis. No acute intracranial hemorrhage, abnormal extra-axial fluid collection, or mass effect. Fourth ventricle is midline without hydrocephalus. 7/8 cranial nerve complex bilaterally symmetric. Normal flow-void signal within the major intracerebral circulation. Normal appearing craniocervical junction and sella turcica. Visualized paranasal sinuses are clear. Impression: 1. Atrophy and degenerative micro-ischemia within normal limits for patient's age. 2. 5 x 12 mm focus acute ischemia left mid centrum semiovale. No acute hemorrhage or mass effect. 3. 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
--- NOTE | 2020-01-26 17:31 | PCM.DCORD ---
- Discharge Disposition: Home, Self-Care Condition: Stable Prescriptions: New Atorvastatin Calcium 20 mg PO DAILY #30 tablet Aspirin EC 81 mg [Ecotrin 81 mg] 81 mg PO DAILY #30 tablet Clopidogrel Bisulfate 75 mg [PLAVIX 75 MG Tablet] 75 mg PO DAILY #30 tablet Lisinopril 10 mg [Zestril 10 MG] 10 mg PO DAILY #30 tablet Additional Instructions: take meds as directed, no working with machinery or unprotected heights until followup in 2 weeks. refer for outpatient speech therapy Follow up with: GILBERTO GERONIMO MD [Primary Care Provider] - 2 weeks
== END 2020-01-26 18:00 | disposition home or self-care (01) ==
LOC: ED 09:06 → MED SURG 10:50
PROVIDERS: ADMIT Family Medicine; ATTEND Family Medicine
DX: I63.9 Cerebral infarction, unspecified (principal); R47.81 Slurred speech; G51.0 Bell's palsy; Z79.899 Other long term (current) drug therapy; Z79.01 Long term (current) use of anticoagulants
CPT/HCPCS: 36415; 70450; 70551; 71045; 80053; 80061; 81001; 83721; 84484; 85025; 92523; 93005; 93041; 93268; 94760; 94762; 99285; G0378; A9270-GY